=== PATIENT | female | born 1960 | race Caucasian/White ===

== ENCOUNTER 2019-04-04 01:38 | Emergency (ER) | payer OTHER ==
[~2019-04-04] VITALS: Ht 152.4 cm; Wt 65.8 kg
--- NOTE | 2019-04-04 01:38 | NUR ---
TO ER BED 8 BIB EMS C/O GEN WEAKNESS, DIZZINESS SINCE MIDNIGHT. (+) ORTHOSTATIC PER EMS REPORT. PT WAS GIVEN NS 150 ML'S BOLUS, ZOFRAN 4MG ODT GIVEN BY EMS RICE DRIER. PT AAOX4 NO ACUTE DISTRESS NOTED, RESP EVEN AND UNLABORED. PLACE PT ON CARDIAC MONITORING, CONTINUOUS POX. ER MD AT BEDSIDE TO EVAL PT WITH ORDERS RECEIED. WILL CARRY OUT ORDERS.
[2019-04-04] MEDS ORDERED: ONDANSETRON HCL/PF 4 MG/2 ML VIAL ONE (01:56)
[2019-04-04] MEDS ORDERED: DIAZEPAM 5 MG/ML 2 ML DISP.SYRIN IV ONE (02:00)
[2019-04-04] MEDS: IV NS 0.9% 1,000 ML BAG IV ONE (02:01)
[2019-04-04] MEDS: ONDANSETRON HCL/PF 4 MG/2 ML VIAL IVP ONE (02:01)
--- NOTE | 2019-04-04 02:01 | NUR ---
PT MEDICATED ORDERED.
[2019-04-04 02:04] LABS: BASOPHILS # (AUTO) 0.1 /CMM (0.0-0.2); EOSINOPHILS % (AUTO) 1.9 % (0.0-6.0); HEMATOCRIT 38 % (33-45); HEMOGLOBIN 12.8 g/dL (11.5-14.8); LYMPHOCYTES # (AUTO) 6.9 /CMM (0.8-4.8); LYMPHOCYTES % (AUTO) 55.3 % (20.0-44.0); MEAN CORPUSCULAR HGB CONC 34 g/dl (31.0-36.0); MEAN CORPUSCULAR VOLUME 90 fL (82-100); MONOCYTES # (AUTO) 0.8 /CMM (0.1-1.30); MONOCYTES % (AUTO) 6.1 % (2.0-12.0); NEUTROPHILS # (AUTO) 4.4 /CMM (1.8-8.9); NEUTROPHILS % (AUTO) 35.7 % (43.0-81.0); PLATELET COUNT (AUTO) 255 /CMM (150-450); WHITE BLOOD COUNT (AUTO) 12.4 K/uL (4.3-11.0)
[2019-04-04 02:16] LABS: ALANINE AMINOTRANSFERASE 31 U/L (12-78); ALBUMIN 3.6 g/dL (3.4-5.0); ALKALINE PHOSPHATASE 61 U/L (46-116); ASPARTATE AMINOTRANSFERASE 21 U/L (15-37); BILIRUBIN,DIRECT 0.1 mg/dL (0.0-0.2); BILIRUBIN,TOTAL 0.2 mg/dL (0.2-1.0); CALCIUM, SERUM 8.8 mg/dL (8.5-10.1); CARBON DIOXIDE 25 mmol/L (21-32); CHLORIDE 104 mmol/L (98-107); CREATININE 0.8 mg/dL (0.6-1.3); GLUCOSE 157 mg/dL (74-106); POTASSIUM 3.2 mmol/L (3.5-5.1); SODIUM SERUM 139 mmol/L (136-145); UREA NITROGEN, BLOOD 14 mg/dL (7-18)
[2019-04-04] MEDS ORDERED: MECLIZINE HCL 25 MG TABLET ONE (02:25)
[2019-04-04] MEDS: MECLIZINE HCL 12.5 MG TABLET PO ONE (02:29)
--- NOTE | 2019-04-04 02:49 | NUR ---
Dr. Conner at bedside for update on pt status w/ discharge instructions.
--- NOTE | 2019-04-04 03:07 | NUR ---
Patient reports feeling better, resp even & unlabored, ambulatory w/ steady gait w/ nad noted. IV removed. Catheter intact and site benign. Pressure and 4x4 applied to site. No bleeding noted. Clothing provided along w/ taxi voucher home. Patient discharged to home in stable condition. Written and verbal after care instructions given. Patient verbalizes understanding of instruction.
[2019-04-04 03:09] VITALS: BP 119/60
== END 2019-04-04 03:20 | disposition home or self-care (01) ==
LOC: ER 01:40
DX: R42 Dizziness and giddiness (principal); R11.2 Nausea with vomiting, unspecified; R53.1 Weakness; R51 Headache
CPT/HCPCS: 36415; 70450; 71045; 80048; 80076; 84484; 85025; 85730; 93005; 96361; 96374; 99284; J2405; J7030; J8597